=== PATIENT | female | born 1960 | race Caucasian/White ===

== ENCOUNTER → 2019-12-31 11:00 | Outpatient (CLI) | payer OTHER, SELFPAY ==
--- NOTE | 2019-12-31 | DI.MRI.S_ITS ---
PROCEDURE: MR HEAD/BRAIN WO CON INDICATIONS: Localization-related (focal) (partial) symptomatic, reported prior history of breast carcinoma. TECHNIQUE: Noncontrast axial T1 spin echo, axial T2 fast spin echo, sagittal and axial FLAIR, coronal T2 fast spin echo, axial gradient echo, axial diffusion and ADC through the brain. COMPARISON: Outside Film, MR, MR ANGIO HEAD WITHOUT CONTRAST, 07/30/2014, 19:06. FINDINGS: Image quality: Excellent. CSF Spaces: Basal cisterns are patent. No extra-axial fluid collections. Ventricles are normal in size and shape. Brain: No intracranial masses or hemorrhage. Arechiga/white matter interface is normal. Brainstem appears normal. Diffusion-weighted images demonstrate no acute ischemic insult. No chronic ischemic insults. Normal intravascular flow voids are present. Skull and face: Calvarium has normal marrow signal, but there is characteristic thickening of the calvarium bilaterally in the frontal region, consistent with hyperostosis frontalis interna.. Orbits appear normal. Sinuses: Sinuses and mastoids are clear. IMPRESSION: No evidence of metastatic disease. No mass lesion or evidence of prior stroke through the brain parenchyma. Note is made of symmetric in thickening of the calvarium in the frontal regions bilaterally, consistent with hyperostosis frontalis interna area this was present on prior comparison MR scanning from 07/30/14, without electronic data interchange specialist time. Dictated by: Jasbir Shetty M.D. on 12/31/2019 at 11:44 Approved by: Jasbir Shetty M.D. on 12/31/2019 at 11:56
== END ==
PROVIDERS: PCP Physician Assistant Medical; Referring Provider Psychiatry & Neurology Neurology; Visit Provider Psychiatry & Neurology Neurology
DX: G40.109 Localization-related (focal) (partial) symptomatic epilepsy and epileptic syndromes with simple partial seizures, not intractable, without status epilepticus (principal); Z85.3 Personal history of malignant neoplasm of breast
CPT/HCPCS: 70551

== ENCOUNTER → 2020-06-02 11:40 | Outpatient (CLI) | payer OTHER, SELFPAY ==
--- NOTE | 2020-06-02 | DI.RAD.S_ITS ---
PROCEDURE: XR LUMBAR SPINE 2-3V INDICATIONS: Sciatic pain TECHNIQUE: 3 views of the lumbar spine were acquired. COMPARISON: None. FINDINGS: Bones: 5 [id number] vertebrae are present. There is normal bony alignment. No vertebral body compression fractures. No suspicious bony lesions. Note is made of degenerative disc disease that is progressively more prominent from L3-S1, comprised of both disc height reduction and endplate osteophyte formation most pronounced at L5-S1. Facet osteoarthritis becomes progressively more prominent from L2 inferiorly and also is most pronounced at L5-S1. Significant multilevel spinal and foraminal stenosis would be expected from L3 inferiorly. Soft tissues: Overlying bowel gas pattern is normal. No suspicious soft tissue calcifications. IMPRESSION: Moderately severe to severe degenerative disc disease and facet osteoarthritis overall with expectoration of multilevel spinal and foraminal stenosis from L3 inferiorly. Dictated by: Jasbir Shetty M.D. on 06/02/2020 at 13:32 Approved by: Jasbir Shetty M.D. on 06/02/2020 at 13:33
== END ==
PROVIDERS: PCP Physician Assistant Medical; Referring Provider Physician Assistant Medical; Visit Provider Physician Assistant Medical
DX: M51.16 Intervertebral disc disorders with radiculopathy, lumbar region (principal); M51.17 Intervertebral disc disorders with radiculopathy, lumbosacral region; M47.26 Other spondylosis with radiculopathy, lumbar region; M47.27 Other spondylosis with radiculopathy, lumbosacral region
CPT/HCPCS: 72100

== ENCOUNTER → 2020-06-09 17:50 | Outpatient (CLI) | payer OTHER, SELFPAY ==
--- NOTE | 2020-06-09 17:53 | DI.MRI.S_ITS ---
PROCEDURE: MR LUMBAR SPINE WO CON INDICATIONS: Lumbago with sciatica, left side TECHNIQUE: Noncontrast sagittal T1 spin echo and T2 fast echo, sagittal STIR, axial T1 and T2 fast spin echo through the lumbar spine. In cases with scoliosis, additional coronal T2 fast spin echo may be performed. COMPARISON: None. FINDINGS: There is approximately 2 mm anterolisthesis of L4 on L5. Alignment is otherwise normal. Vertebral body heights maintained. There is mild discogenic marrow signal change (Modic type 2 and 3) at the opposing endplates from L3-L4 through L5-S1. Disc desiccation at every level in the lumbar spine with height loss from L3-L4 through L5-S1. Normal position and appearance of the conus. Facet osteoarthropathy from L2-L3 through L5-S1. Facet joint effusions at L4-5 and L5-S1, with periarticular soft tissue edema. Prevertebral and paraspinous soft tissues otherwise unremarkable. L1-L2: Normal appearance. L2-L3: Normal appearance. L3-L4: Disc desiccation and disc height loss with circumferential disc bulge and superimposed broad-based posterior disc protrusion. Disc material flattens the ventral thecal sac with mild displacement of the descending L4 nerve roots in both subarticular zones. Foraminal components of the disc bulge and facet hypertrophy contribute to mild bilateral neural foraminal stenosis. L4-L5: Disc desiccation and disc height loss with diffuse disc bulge and a superimposed broad-based posterior disc protrusion. Disc material flattens and indents the ventral thecal sac. There is bulky facet hypertrophy and buckling of the ligamentum flavum which further contributes to overall moderate spinal canal stenosis. There is mild bilateral neural foraminal narrowing related to these factors. L5-S1: Diffuse disc bulge and a superimposed broad-based posterior disc protrusion flattens the ventral thecal sac with mass effect upon the bilateral S1 nerve roots in both subarticular zones. There is moderate bilateral neural foraminal narrowing, left greater than right. IMPRESSION: Degenerative changes from L3-L4 through L5-S1 with areas of potential nerve root impingement as documented above. Correlate for any corresponding radicular symptoms. Moderate spinal canal stenosis at L4-L5. Facet osteoarthropathy from L2-L3 through L5-S1, worst at L4-L5 and L5-S1 where there is facet effusion, subchondral cystic change, and periarticular soft tissue edema. This is a potential source of nonradicular axial back pain. Dictated by: Nishant Mendez M.D. on 06/10/2020 at 9:20 Approved by: Nishant Mendez M.D. on 06/10/2020 at 9:29
== END ==
PROVIDERS: PCP Physician Assistant Medical; Referring Provider Internal Medicine; Visit Provider Internal Medicine
DX: M54.42 Lumbago with sciatica, left side (principal); M47.816 Spondylosis without myelopathy or radiculopathy, lumbar region; M47.817 Spondylosis without myelopathy or radiculopathy, lumbosacral region; M48.061 Spinal stenosis, lumbar region without neurogenic claudication; M48.07 Spinal stenosis, lumbosacral region; M25.48 Effusion, other site
CPT/HCPCS: 72148

== ENCOUNTER 2021-02-26 12:28 | Emergency (ER) | payer OTHER, SELFPAY ==
[2021-02-26 12:39] VITALS: BP 193/88; PULSE 89; RESP 16; TEMP 36.9; O2SAT 98; BMI 22.1
--- NOTE | 2021-02-26 12:45 | DI.RAD.S_ITS ---
PROCEDURE: XR FOOT LT MIN 3V INDICATIONS: rolled ankle,pt having foot,ankle and tib/fib pain TECHNIQUE: 3 views of the foot were acquired. COMPARISON: None. FINDINGS: Bones: No gross acute fractures or dislocations is seen in left foot. Fracture involving tip of lateral malleolus is seen. Osteoarthritic changes are noted involving interphalangeal joints and 1st MTP joint. No suspicious bony lesions. Soft tissues: No tibiotalar joint effusion. Achilles tendon appears normal. IMPRESSION: No gross acute left foot fracture or dislocation. Forefoot joint osteoarthritis. Dictated by: Raheem Walton M.D. on 02/26/2021 at 13:24 Approved by: Raheem Walton M.D. on 02/26/2021 at 13:26
--- NOTE | 2021-02-26 12:45 | DI.RAD.S_ITS ---
PROCEDURE: XR TIBIA FIBULA LT 2V INDICATIONS: rolled ankle,pt having foot,ankle and tib/fib pain TECHNIQUE: 2 views of the tibia and fibula were acquired. COMPARISON: None. FINDINGS: Bones: Fracture involving tip of lateral malleolus is seen. No fracture or dislocation is seen in more proximal portion of fibular shaft. No acute tibial fracture. No suspicious intraosseous lesion. Soft tissues: No suspicious soft tissue calcifications or masses. IMPRESSION: Lateral malleolus tip fracture. No other fracture or dislocation is seen in tibia and fibula. Dictated by: Raheem Walton M.D. on 02/26/2021 at 13:26 Approved by: Raheem Walton M.D. on 02/26/2021 at 13:26
--- NOTE | 2021-02-26 12:45 | DI.RAD.S_ITS ---
PROCEDURE: XR ANKLE LT MIN 3V INDICATIONS: rolled ankle,pt having foot,ankle and tib/fib pain TECHNIQUE: 3 views of the ankle were acquired. COMPARISON: None. FINDINGS: Bones: There is acute avulsion injury involving tip of lateral malleolus with minimally displaced fractured fragment. No other fracture or dislocation is seen. Ankle mortise is normally aligned. No suspicious bony lesions. Soft tissues: Mild lateral ankle soft tissue swelling is seen. No tibiotalar joint effusion. Achilles tendon appears normal. IMPRESSION: Acute minimally displaced fracture involving tip of lateral malleolus with overlying soft tissue swelling. Intact ankle mortise. Dictated by: Raheem Walton M.D. on 02/26/2021 at 13:24 Approved by: Raheem Walton M.D. on 02/26/2021 at 13:24
--- NOTE | 2021-02-26 13:37 | ED.LOWEXIN ---
HPI - Extremity Injury (Lower) General Chief Complaint: Extremity Injury, Lower Stated Complaint: left ankle injury, swollen, tingly, not healing Time Seen by Provider: 02/26/21 13:29 Source: patient Mode of arrival: Wheelchair Limitations: no limitations History of Present Illness HPI Narrative: Otherwise healthy 60-year-old female here for evaluation of a left ankle injury. The event occurred approximately 1 week ago when she was playing with her granddaughter. States she landed on her left ankle and twisted it. She has had swelling and discoloration of it since then and also quite a bit of discomfort with walking. Has tried to keep it elevated and iced since the event but things seem to not improving. She also has tingling in her toes. Related Data Home Medications Medication Instructions Recorded Confirmed carbamazepine 200 mg 200 mg PO 5XD cap 04/17/19 04/17/19 capsule,extended release [id number] cholecalciferol (vitamin D3) 50 2,000 unit PO DAILY 04/17/19 04/17/19 mcg (2,000 unit) capsule divalproex 250 mg tablet,delayed 250 mg PO QID tab 04/17/19 04/17/19 release levothyroxine 50 mcg capsule 50 mcg PO DAILY 04/17/19 04/17/19 Allergies Allergy/AdvReac Type Severity Reaction Status Date / Time Penicillins AdvReac Intermediate Rash Verified 02/26/21 12:43 Review of Systems Constitutional Constitutional: Denies fever(s) and Denies headache(s) ENT Ears, Nose, Mouth, and Throat: Denies headache(s) Cardiovascular Cardiovascular: Denies chest pain and Denies dyspnea Respiratory Respiratory: Denies dyspnea Musculoskeletal Comments: Left ankle injury Integumentary/Breasts Comments: Bruising around left ankle Neurologic Neurologic: Denies headache(s) Comments: Tingling to left foot Hematologic/Lymphatic On Anticoagulants: No Allergic/Immunologic Allergic/Immunologic: Denies urticaria Patient History Medical History Hypothyroid Social History Smoking Status: Never smoker Smoking Status: Never smoker alcohol intake frequency: 0-2 drinks per day Substance Use Type: does not use Exam Initial Vital Signs Initial Vital Signs: Vital Signs Temperature 98.4 F 02/26/21 12:39 Pulse Rate 89 02/26/21 12:39 Respiratory Rate 16 02/26/21 12:39 Blood Pressure 193/88 H 02/26/21 12:39 Pulse Oximetry 98 02/26/21 12:39 Const General: cooperative, comfortable and well developed Limitations: mental status not altered [facility] Head: normal to inspection and normocephalic Cardio Pulses: dorsalis pedis present on the left Skin Other: Bruising inferior to the lateral malleolus. Neuro Other: Tingling and decreased sensation to the top of the left foot Extrem Other: She does have proximal fibula tenderness. Also has tenderness over the lateral malleolus. No tenderness of the Achilles tendon. No tenderness over the medial malleolus. Does have some tenderness on the dorsum of the left foot. Psych Appearance: well kempt Procedures Orthopedic Splinting/Casting Injury #1: Side: left Lower Extremity Injury Location: ankle Lower Extremity Immobilizer: boot orthosis Post splinting neuro exam: no change Post splinting vascular exam: no change Placed by: Nursing Course Orders Ordered: ED Orders 02/26/21 12:45 XR ankle LT min 3V Stat XR foot LT min 3V Stat XR tibia fibula LT 2V Stat Vital Signs Vital signs: Vital Signs - 8 hr 02/26/21 12:39 02/26/21 14:21 Temperature 98.4 F Pulse Rate 89 85 Respiratory Rate 16 18 Blood Pressure 193/88 H 166/79 H Pulse Oximetry 98 97 MDM - Extremity Injury (Lower) Imaging Data Extremity x-ray #1: Radiologist's Impression: [address] [id number] ReportSigned Patient: Winsome Juárez [facility]#: [id number]: 8Acct:[id number]/Sex: 60 / FDate of Service: 02/26/21Loc: EDAccession Number: [id number] Procedure: XR ankle LT min 3V Ordering Provider: Anthony Mills D.O. PROCEDURE: XR ANKLE LT MIN 3V INDICATIONS: rolled ankle,pt having foot,ankle and tib/fib pain TECHNIQUE: 3 views of the ankle were acquired. COMPARISON: None. FINDINGS: Bones: There is acute avulsion injury involving tip of lateral malleolus with minimally displaced fractured fragment. No other fracture or dislocation is seen. Ankle mortise is normally aligned. No suspicious bony lesions. Soft tissues: Mild lateral ankle soft tissue swelling is seen. No tibiotalar joint effusion. Achilles tendon appears normal. IMPRESSION: Acute minimally displaced fracture involving tip of lateral malleolus with overlying soft tissue swelling. Intact ankle mortise. Dictated by: Raheem Walton M.D. on 02/26/2021 at 13:24 Approved by: Raheem Walton M.D. on 02/26/2021 at 13:24 Extremity x-ray #2: Radiologist's Impression: [address] [id number] ReportSigned Patient: Winsome Juárez [facility]#: [id number]: 1960cct:[id number]/Sex: 60 / FDate of Service: 02/26/21Loc: EDAccession Number: [id number] Procedure: XR foot LT min 3V Ordering Provider: Anthony Mills D.O. PROCEDURE: XR FOOT LT MIN 3V INDICATIONS: rolled ankle,pt having foot,ankle and tib/fib pain TECHNIQUE: 3 views of the foot were acquired. COMPARISON: None. FINDINGS: Bones: No gross acute fractures or dislocations is seen in left foot. Fracture involving tip of lateral malleolus is seen. Osteoarthritic changes are noted involving interphalangeal joints and 1st MTP joint. No suspicious bony lesions. Soft tissues: No tibiotalar joint effusion. Achilles tendon appears normal. IMPRESSION: No gross acute left foot fracture or dislocation. Forefoot joint osteoarthritis. Dictated by: Raheem Walton M.D. on 02/26/2021 at 13:24 Approved by: Raheem Walton M.D. on 02/26/2021 at 13:26 Extremity x-ray #3: Radiologist's Impression: [address] [id number] ReportSigned Patient: Winsome Juárez [facility]#: [id number]: 1960cct:[id number]/Sex: 60 / FDate of Service: 02/26/21Loc: EDAccession Number: [id number] Procedure: XR tibia fibula LT 2V Ordering Provider: Anthony Mills D.O. PROCEDURE: XR TIBIA FIBULA LT 2V INDICATIONS: rolled ankle,pt having foot,ankle and tib/fib pain TECHNIQUE: 2 views of the tibia and fibula were acquired. COMPARISON: None. FINDINGS: Bones: Fracture involving tip of lateral malleolus is seen. No fracture or dislocation is seen in more proximal portion of fibular shaft. No acute tibial fracture. No suspicious intraosseous lesion. Soft tissues: No suspicious soft tissue calcifications or masses. IMPRESSION: Lateral malleolus tip fracture. No other fracture or dislocation is seen in tibia and fibula. Dictated by: Raheem Walton M.D. on 02/26/2021 at 13:26 Approved by: Raheem Walton M.D. on 02/26/2021 at 13:26 [facility] Narrative Medical decision making narrative: X-ray show it appears to be an avulsion fracture over the lateral malleolus. This does correspond to where she is having discomfort. There were no other fractures noted on the x-rays. She was given a orthopedic boot which he states did help her symptoms quite a bit. She refused crutches. We did discuss elevation and ice and return precautions. Patient expressed understanding and agreement. Discharge Plan Departure Patient Disposition: Home Clinical Impression: Avulsion fracture of lateral malleolus Instructions: Ankle Fracture Activity Restrictions/Additional Instructions: Your x-rays today do show what is called an avulsion fracture of your fibula which is the bone on the outside of your leg. The boot is for your comfort. You can take it off to shower and at night to sleep. I also recommend that you take it off and keep your leg elevated as much as you can throughout the day. Also keep your ankle iced. You can use the crutches for your comfort as well. Contact your primary provider for follow-up. Return to the emergency department for any new or worsening symptoms Prescriptions: No Action divalproex 250 mg tablet,delayed release (DR/EC) 250 mg PO QID RF: 0 carbamazepine 200 mg capsule, ER multiphase 12 hr 200 mg PO 5XD RF: 0 cholecalciferol (vitamin D3) 2,000 unit capsule 2,000 unit PO DAILY RF: 0 levothyroxine 50 mcg capsule 50 mcg PO DAILY RF: 0 Referrals: Evelyn Perez [Primary Care Provider] -
[2021-02-26 14:21] VITALS: BP 166/79; PULSE 85; RESP 18; O2SAT 97
== END 2021-02-26 14:24 | disposition home or self-care (01) ==
PROVIDERS: Emergency Provider Emergency Medicine; PCP Physician Assistant Medical
DX: S82.62XA Displaced fracture of lateral malleolus of left fibula, initial encounter for closed fracture (principal); X50.1XXA Overexertion from prolonged static or awkward postures, initial encounter
CPT/HCPCS: 29515; 29580; 73590; 73610; 73630; 99282; 99283

== ENCOUNTER → 2021-09-15 13:51 | Outpatient (CLI) | payer OTHER, SELFPAY ==
--- NOTE | 2021-09-15 | DI.RAD.S_ITS ---
PROCEDURE: XR DEXA AXIAL SKELETON INDICATIONS: Encounter for screening for osteoporosis COMPARISON: None. FINDINGS: This blank DEXA report has been sent in error by the PACS system. The correct and complete report will be forthcoming in 1-2 days. Thank you for your patience and understanding. Dictated by: Teetee Greene MD, PhD on 09/15/2021 at 16:53 Approved by: Teetee Greene MD, PhD on 09/15/2021 at 16:54
== END ==
PROVIDERS: PCP Physician Assistant Medical; Referring Provider Internal Medicine; Visit Provider Internal Medicine
DX: Z13.820 Encounter for screening for osteoporosis (principal); M81.0 Age-related osteoporosis without current pathological fracture; Z78.0 Asymptomatic menopausal state
CPT/HCPCS: 77080